=== PATIENT | female | born 1955 | race Caucasian/White ===

== ENCOUNTER → 2022-02-04 12:54 | Outpatient (CLI) | payer OTHER, MEDICARE, SELFPAY ==
--- NOTE | ~2022-02-04 | CT_ITS ---
EXAMINATION: CT abdomen pelvis w con DATE: 02/04/2022 13:45 INDICATION: Epigastric abdominal pain. Right upper quadrant abdominal pain. TECHNIQUE: Computed tomography (CT) of the abdomen and pelvis was performed with 100 mL Omnipaque 350 intravenous contrast. Automated exposure control and iterative reconstruction technique were employe d. The dose-length product was 320.80 mGy-cm. COMPARISON: None. FINDINGS: The visualized portions of the lung bases demonstrate mild atelectasis. No pleural effusion . The heart size is normal. No pericardial effusion. The liver and gallbladder are normal. Calcificat ions in the spleen are consistent with old granulomatous disease. The pancreas, adrenal glands, and l eft kidney are normal. There is a 9 mm cyst in right kidney. The appendix is not visualized. There ar e no dilated loops of bowel. There is wall thickening of the body and antrum of the stomach, consiste nt with proximal primary malignancy. There is nodularity of the greater omentum, consistent with carc inomatosis. There is a small volume of ascites. There are no pathologically enlarged lymph nodes. The re is mild lumbar spondylosis. IMPRESSION: 1. Stomach wall thickening, consistent with primary adenocarcinoma. 2. 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 Reviewed, dictated and finalized at location A. CALLER
[2022-02-04 13:35] LABS: Estimated Glomerular Filt Rate > 60
== END ==
PROVIDERS: PCP Family Medicine
DX: R10.13 Epigastric pain (principal); K21.9 Gastro-esophageal reflux disease without esophagitis; R10.11 Right upper quadrant pain
CPT/HCPCS: 74177; Q9967